=== PATIENT | male | born 1950 | race Caucasian/White ===

== ENCOUNTER 2021-02-08 12:00 | Observation (INO) | payer MEDICARE, OTHER ==
[2021-02-08] MEDS ORDERED: Sodium Chloride 0.9% 1000 ML 1,000 ML ONE ×2 (12:28→18:01)
[2021-02-08] MEDS ORDERED: Sodium Chloride 0.9% 1000 ML 1,000 ML IV STA (12:44)
[2021-02-08 12:53] LABS: Absolute Neutrophil Ct (ANC) 3.59 (1.4-6.9); BASOPHIL % 0.4 % (0.0-0.4); Basophil (Absolute #) 0.02 (0-0.4); Eosinophil % 2.1 % (0.00-5.0); Hematocrit 41.3 % (42-50); Lymphocyte (Absolute #) 0.57 (1.0-4.6); Lymphocytes % 12.2 % (24.0-44.0); Mean Cell Volume 97.2 fl (78-100); Mean Corpuscular Hemoglobin 32.9 pg (26-32); Mean Corpuscular Hgb Concent. 33.9 g/dl (32-36); Mean Platelet Volume 9.7 fl (7.5-11.0); Monocyte (Absolute #) 0.39 (0.0-1.3); Monocytes % 8.4 % (0.0-12.0); Neutrophil % 76.9 % (36.0-66.0); Platelet Count 135 K/mm3 (150-450); Red Blood Count 4.25 M/mm3 (4.1-5.6); Red Cell Distribution Width 13.2 % (11.5-14.0); White Blood Count 4.7 K/mm3 (4.0-10.5)
[2021-02-08 12:58] LABS: ALBUMIN 4.2 g/dL (3.5-5.0); ALKALINE PHOSPHATASE 68 U/L (38-126); ANION GAP 17.2 MEQ/L (5-15); BLOOD UREA NITROGEN 16 mg/dL (9-20); CHLORIDE 102 mmol/L (98-107); Calcium 9.3 mg/dL (8.4-10.2); Carbon Dioxide 21 mmol/L (22-30); Creatinine 1 1.01 mg/dL (0.66-1.25); EST GLOMERULAR FILTRATION RATE > 60.0 ML/MIN; Glucose 103 mg/dL (74-106); MAGNESIUM 1.9 mg/dL (1.6-2.3); Potassium 4.3 mmol/L (3.5-5.1); SGOT/AST 28 U/L (17-59); SGPT/ALT 18 U/L (0-50); SODIUM 136 mmol/L (137-145); Total Protein 6.8 g/dL (6.3-8.2)
--- NOTE | 2021-02-08 13:14 | ERPHSYRPT ---
- History of Present Illness Time Seen by Provider: 02/08/21 12:10 Source: patient, family Exam Limitations: no limitations Patient Subjective Stated Complaint: Pt was at a restraunt when he noticed having spots in front of his eyes and then when he stood up he got dizzy and almost passed out Triage Nursing Assessment: Pt brought to the ER by his , hypotensive, denies pain, pulses normal, sinus rhythm, diaphoretic, still has spots before eyes Physician History: 70 years old male with history of hypertension, visual issues with chronic seeing spots and field of vision presented in the ER after he got dizzy ligh theaded while walking into the restaurant with seeing more spots and was almost passed out when somebody got him. He did not completely lose consciousness. Patient report he started to feel weak all over without any chest pain palpitations or shortness of breath before or after the episode. He denies any focal numbness tingling or weakness. Patient reports he was mowing yard outside in hot yesterday and feels as if he was dehydrated. Patient feels back to normal right now and his blood pressure systolic is 83. Patient did take his routine antihypertensives earlier today. Denies any vomiting or diarrhea. Timing/Duration: today, resolved prior to arrival, improved Severity: moderate Modifying Factors: Improves With: rest Associated Symptoms: weakness, No nausea, No vomiting, No abdominal pain, No shortness of breath, No heartburn, No diaphoresis, No cough, No chills, No chest pain, No fever, No headaches, No loss of appetite, No malaise, No syncope, No seizure Allergies/Adverse Reactions: No Known Drug Allergies Allergy (Verified 02/08/21 12:20) Home Medications: Amlodipine Besylate 10 mg PO BID 02/08/21 [History] Cetirizine HCl 10 mg PO DAILY 02/08/21 [History] Hydroxychloroquine Sulfate 200 mg PO DAILY 02/08/21 [History] Lisinopril 20 mg [Zestril 20 MG] 20 mg PO BID 02/08/21 [History] Metoprolol Succinate 50 mg [Toprol Xl 50 MG] 50 mg PO BID 02/08/21 [History] Omeprazole 40 mg PO DAILY 02/08/21 [History] Tamsulosin HCl 0.4 mg PO DAILY 02/08/21 [History] Travel Risk - International Travel Have you traveled outside of the country in past 3 weeks: No - Coronavirus Screening Are you exhibiting any of the following symptoms?: No Close contact with a COVID-19 positive Pt in past 14-21 Days: No - Vaccine Status Have you recieved a 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 - Vaccination Dates Date of 2cond Vaccination (if applicable): 10/06/2020 - Review of Systems Constitutional: Fatigue, Weakness Eyes: No Symptoms Ears, Nose, & Throat: No Symptoms Respiratory: No Symptoms Cardiac: No Symptoms Abdominal/Gastrointestinal: No Symptoms Genitourinary Symptoms: No Symptoms Musculoskeletal: No Symptoms Skin: No Symptoms Neurological: Dizziness Psychological: No Symptoms Endocrine: No Symptoms Hematologic/Lymphatic: No Symptoms Immunological/Allergic: No Symptoms - Past Medical History Neurological History: No Pertinent History Cardiac History: Coronary Artery Disease, High Cholesterol, Hypertension Respiratory History: No Pertinent History Endocrine Medical History: No Pertinent History Musculoskeletal History: Degenerative Disk Disease, Rheumatoid Arthritis, Other Other Medical History: lupus - Past Surgical History Past Surgical History: Yes Cardiac: Cardiac Stent Gastrointestinal: Appendectomy Musculoskeletal: Joint Replacement Other Surgical History: quad tendon repairs. hydrocele - Social History Smoking Status: Never smoker Exposure to second hand smoke: No Drug Use: none Patient Lives Alone: No - Nursing Vital Signs Nursing Vital Signs: Initial Vital Signs Pulse Rate 60 02/08/21 12:08 Respiratory Rate 17 02/08/21 12:08 Blood Pressure 101/68 02/08/21 12:08 O2 Sat by Pulse Oximetry 97 02/08/21 12:08 Pain Scale Pain Intensity 0 - Physical Exam General Appearance: no apparent distress, alert Eye Exam: PERRL/EOMI, eyes nml inspection Ears, Nose, Throat Exam: normal ENT inspection, TMs normal, pharynx normal Neck Exam: normal inspection, supple, full range of motion Respiratory Exam: normal breath sounds, lungs clear Cardiovascular Exam: regular rate/rhythm, normal heart sounds Gastrointestinal/Abdomen Exam: soft, normal bowel sounds, tenderness Back Exam: normal inspection, normal range of motion, No CVA tenderness Extremity Exam: normal inspection, normal range of motion Neurologic Exam: alert, oriented x 3, cooperative, 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 Plantars bilateral downgoing.), No motor deficits, No sensory deficit Skin Exam: normal color SpO2 Interpretation: normal SpO2: 96 O2 Delivery: Room Air - Course EKG Interpreted by Me: RATE (60), Sinus Rhythm, NORMAL AXIS, NORMAL INTERVALS, NORMAL QRS Ordered Tests: Active Orders 24 hr Category Date Time Status EKG-ER Only STAT Care 02/08/21 12:44 Active IV Insertion STAT Care 02/08/21 12:44 Active Orthostatic Vital Signs STAT Care 02/08/21 12:45 Active CHEST 1 VIEW (PORTABLE) Stat Exams 02/08/21 12:45 Taken CBC W DIFF Stat Lab 02/08/21 12:44 Completed CMP Stat Lab 02/08/21 12:44 Completed Lactic Acid Stat Lab 02/08/21 13:02 Completed MAGNESIUM Stat Lab 02/08/21 12:44 Completed TROPONIN Q3H Lab 02/08/21 12:45 Completed TROPONIN Q3H Lab 02/08/21 15:45 Ordered TROPONIN Q3H Lab 02/08/21 18:45 Ordered TROPONIN Q3H Lab 02/08/21 21:45 Ordered TROPONIN Q3H Lab 02/09/21 00:45 Ordered UA W/RFX UR CULTURE Stat Lab 02/08/21 12:45 Ordered Medication Summary Discontinued Medications Generic Name Dose Route Start Last Admin Trade Name Yudelka PRN Reason Stop Dose Admin Sodium Chloride Confirm 02/08/21 12:28 Sodium Chloride 0.9% 1000 Ml Administered 02/08/21 12:29 Dose 1,000 mls @ ud .ROUTE .STK-MED ONE Sodium Chloride 1,000 mls @ 999 mls/hr 02/08/21 12:44 02/08/21 12:59 Sodium Chloride 0.9% 1000 Ml IV 02/08/21 13:44 999 mls/hr .Q1H1M STA Administration Lab/Rad Data: Laboratory Result Diagrams 02/08/21 12:44 02/08/21 12:44 Laboratory Results 02/08/21 02/08/21 02/08/21 Range/Units 13:02 12:45 12:44 WBC (4.0-10.5) K/mm3 RBC (4.1-5.6) M/mm3 Hgb (12.5-18.0) gm/dl Hct (42-50) % MCV (78-100) fl MCH (26-32) pg MCHC (32-36) g/dl RDW (11.5-14.0) % Plt Count (150-450) K/mm3 MPV (7.5-11.0) fl Gran % (36.0-66.0) % Eos # (Auto) (0-0.5) Absolute Lymphs (auto) (1.0-4.6) Absolute Monos (auto) (0.0-1.3) Lymphocytes % (24.0-44.0) % Monocytes % (0.0-12.0) % Eosinophils % (0.00-5.0) % Basophils % (0.0-0.4) % Absolute Granulocytes (1.4-6.9) Basophils # (0-0.4) Sodium 136 L (137-145) mmol/L Potassium 4.3 (3.5-5.1) mmol/L Chloride 102 (98-107) mmol/L Carbon Dioxide 21 L (22-30) mmol/L Anion Gap 17.2 H (5-15) MEQ/L BUN 16 (9-20) mg/dL Creatinine 1.01 (0.66-1.25) mg/dL Estimated GFR > 60.0 ML/MIN Glucose 103 (74-106) mg/dL Lactic Acid 1.3 (0.4-2.0) Calcium 9.3 (8.4-10.2) mg/dL Magnesium 1.9 (1.6-2.3) mg/dL Total Bilirubin 0.60 (0.2-1.3) mg/dL AST 28 (17-59) U/L ALT 18 (0-50) U/L Alkaline Phosphatase 68 (38-126) U/L Troponin I < 0.012 (0.000-0.034) ng/mL Serum Total Protein 6.8 (6.3-8.2) g/dL Albumin 4.2 (3.5-5.0) g/dL Slides for Path Review 02/08/21 Range/Units 12:44 WBC 4.7 (4.0-10.5) K/mm3 RBC 4.25 (4.1-5.6) M/mm3 Hgb 14.0 (12.5-18.0) gm/dl Hct 41.3 L (42-50) % MCV 97.2 (78-100) fl MCH 32.9 H (26-32) pg MCHC 33.9 (32-36) g/dl RDW 13.2 (11.5-14.0) % Plt Count 135 L (150-450) K/mm3 MPV 9.7 (7.5-11.0) fl Gran % 76.9 H (36.0-66.0) % Eos # (Auto) 0.10 (0-0.5) Absolute Lymphs (auto) 0.57 L (1.0-4.6) Absolute Monos (auto) 0.39 (0.0-1.3) Lymphocytes % 12.2 L (24.0-44.0) % Monocytes % 8.4 (0.0-12.0) % Eosinophils % 2.1 (0.00-5.0) % Basophils % 0.4 (0.0-0.4) % Absolute Granulocytes 3.59 (1.4-6.9) Basophils # 0.02 (0-0.4) Sodium (137-145) mmol/L Potassium (3.5-5.1) mmol/L Chloride (98-107) mmol/L Carbon Dioxide (22-30) mmol/L Anion Gap (5-15) MEQ/L BUN (9-20) mg/dL Creatinine (0.66-1.25) mg/dL Estimated GFR ML/MIN Glucose (74-106) mg/dL Lactic Acid (0.4-2.0) Calcium (8.4-10.2) mg/dL Magnesium (1.6-2.3) mg/dL Total Bilirubin (0.2-1.3) mg/dL AST (17-59) U/L ALT (0-50) U/L Alkaline Phosphatase (38-126) U/L Troponin I (0.000-0.034) ng/mL Serum Total Protein (6.3-8.2) g/dL Albumin (3.5-5.0) g/dL Slides for Path Review YES - Progress Progress: improved, re-examined Progress Note: 02/08/21 14:49 70 years old is evaluated for feeling dizzy lightheaded with generalized weakness fatigue. Patient was hypotensive on presentation. Given fluid bolus and feeling much better. He has a nonfocal neuro exam. He has spots in his visual field which are chronic. Patient does follow-up with ophthalmology for that. Chest x-ray did not show any focal consolidation. EKG normal sinus rh ythm with no acute ST elevation and negative initial troponin. Chemistry profile showed mildly low bicarb and gap of 17. I believe patient has some dehydration. Lactate is normal. I believe he would benefit with fluids. Discussed with Dr. Smith and patient is accepted for admission. Discussed with .: Leon Will see patient in: hospital (observation) Counseled pt/family regarding: lab results, diagnosis, rad results - Departure Departure Disposition: Observation Clinical Impression: Dehydration, Orthostatic lightheadedness Hypotension Qualifiers: Hypotension type: other hypotension type Qualified Code(s): I95.89 - Other hypotension Condition: Stable Critical Care Time: No Referrals: CHIVO CHAVEZ MD [Primary Care Provider] -
[2021-02-08 14:44] LABS: Slide Review 1 YES
[2021-02-08 16:22] LABS: Appearance SLIGHTLY CLOUDY (CLEAR); Bilirubin NEGATIVE (NEGATIVE); Blood NEGATIVE Ery/ul (0-5); Glucose NEGATIVE (NEGATIVE); Ketones SMALL (NEGATIVE); Leukocyte Esterase NEGATIVE (NEGATIVE); Mucus SLIGHT /HPF (NEGATIVE); Nitrite NEGATIVE (NEGATIVE); Protein,Urine Dip NEGATIVE (Negative); Specific Gravity 1.012 (1.005-1.025); Urobilinogen NEGATIVE mg/dL (0-1)
[2021-02-08] MEDS ORDERED: Sodium Chloride 0.9% W/ 20 mEq KCl/LITER 1,000 ML IV SCH (18:04)
[2021-02-08] MEDS ORDERED: DUONEB 0.5-3 MG/3 ml Neb IH PRN (18:04)
[2021-02-08] MEDS ORDERED: Zofran 4 MG/2 ML VIAL IV PRN (18:04)
[2021-02-08] MEDS ORDERED: TYLENOL 325 MG PO PRN (18:04)
[2021-02-08] MEDS: Sodium Chloride 0.9% 1000 ML 1,000 ML IV SCH (18:43)
[2021-02-08] MEDS ORDERED: PROTONIX 40 MG IV IV ONE (20:00)
--- NOTE | 2021-02-08 21:28 | XRAY ---
Indication: Dizziness. Comparison: None Portable chest demonstrates subtle asymmetric right base infiltrate versus atelectasis. Remaining heart and lungs unremarkable with incidental tortuous descending aorta. Bony thorax intact.
[2021-02-08] MEDS ORDERED: Toprol Xl 50 MG PO SCH (22:00)
[2021-02-08] MEDS ORDERED: Flomax 0.4 MG PO SCH (22:00)
[2021-02-09 01:36] LABS: ALBUMIN 3.2 g/dL (3.5-5.0); ALKALINE PHOSPHATASE 58 U/L (38-126); ANION GAP 12.4 MEQ/L (5-15); BLOOD UREA NITROGEN 14 mg/dL (9-20); CHLORIDE 105 mmol/L (98-107); Calcium 8.4 mg/dL (8.4-10.2); Carbon Dioxide 24 mmol/L (22-30); Creatinine 1 0.71 mg/dL (0.66-1.25); EST GLOMERULAR FILTRATION RATE > 60.0 ML/MIN; Glucose 93 mg/dL (74-106); Potassium 4.2 mmol/L (3.5-5.1); SGOT/AST 22 U/L (17-59); SGPT/ALT 15 U/L (0-50); SODIUM 138 mmol/L (137-145); Total Protein 5.5 g/dL (6.3-8.2)
[2021-02-09] MEDS: Sodium Chloride 0.9% 1000 ML 1,000 ML IV SCH (01:55)
[2021-02-09 03:09] LABS: Absolute Neutrophil Ct (ANC) 1.53 (1.4-6.9); BASOPHIL % 0.6 % (0.0-0.4); Basophil (Absolute #) 0.02 (0-0.4); Eosinophil % 5.2 % (0.00-5.0); Eosinophil (Absolute #) 0.17 (0-0.5); Hematocrit 36.3 % (42-50); Lymphocyte (Absolute #) 1.02 (1.0-4.6); Lymphocytes % 31.5 % (24.0-44.0); Mean Cell Volume 99.5 fl (78-100); Mean Corpuscular Hemoglobin 32.9 pg (26-32); Mean Corpuscular Hgb Concent. 33.1 g/dl (32-36); Mean Platelet Volume 9.8 fl (7.5-11.0); Monocytes % 15.4 % (0.0-12.0); Neutrophil % 47.3 % (36.0-66.0); Platelet Count 103 K/mm3 (150-450); Red Blood Count 3.65 M/mm3 (4.1-5.6); Red Cell Distribution Width 13.1 % (11.5-14.0); White Blood Count 3.2 K/mm3 (4.0-10.5)
[2021-02-09 04:06] VITALS: O2SAT 94
[2021-02-09 07:45] VITALS: BP 127/63; PULSE 80
[2021-02-09] MEDS ORDERED: MEDICATION INTERVENTION PO SCH ×2 (09:15)
[2021-02-09] MEDS ORDERED: HYDROXYCHLOROQUINE SULFATE 400 MG PO SCH (10:00)
[2021-02-09] MEDS ORDERED: CLARITIN 10 MG PO SCH (10:00)
[2021-02-09] MEDS ORDERED: NON-FORMULARY ITEM (Cetirizine Hcl [Cetirizine Hcl] 10 MG) PO SCH (10:00)
[2021-02-09] MEDS ORDERED: PROTONIX 40 MG IV IV SCH (10:00)
[2021-02-09] MEDS ORDERED: NON-FORMULARY ITEM (Hydroxychloroquine Sulfate [Hydroxychloroquine Sulfate] 200 MG) PO SCH (22:00)
--- NOTE | 2021-02-11 12:09 | SSS ---
DISCHARGE DIAGNOSES: 1) DEHYDRATION. 2) HYPOTENSION. 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 He reports later on when he got up he became dizzy and almost passed out. He was brought to the emergency room by his . He was found to be somewhat hypotensive and he was given IV fluids which did improve his situation. He was felt the need to have observation overnight. PAST MEDICAL/SURGICAL HISTORY: The patient's medical history is significant for hypertension, benign prostatic hypertrophy. He has history of coronary artery disease, high cholesterol and hypertension. He reports he had a previous stent placed 20 years ago and has been fine since that time. HOME MEDICATIONS: Amlodipine 10 mg b.i.d., cetirizine 10 mg a day, hydroxychloroquine 200 mg at night, lisinopril 20 mg b.i.d., metoprolol 50 mg b.i.d., omeprazole 40 mg daily, tamsulosin 0.4 mg. ALLERGIES: NKDA. PHYSICAL EXAMINATION: The patient's vital signs on admission showed pulse to be 60, respiratory rate 17, blood pressure 101/68. O2 saturation is 97%. HEENT: Normocephalic, atraumatic. Pupils equal round reactive to light. Extraocular movements intact. Oropharynx is pink and moist. NECK: Supple without lymphadenopathy, thyromegaly or JVD. CHEST: Clear to auscultation. HEART: Regular rate and rhythm without murmurs, rubs or gallops. ABDOMEN: Soft. No palpable masses. EXTREMITIES: Without cyanosis, clubbing or edema. NEUROLOGIC: The patient is alert and oriented x3. LAB DATA AND TESTS: Troponin less than 0.012. His metabolic panel showed glucose 93, BUN 14, creatinine 0.71. His electrolytes are normal. Liver enzymes were normal. Protein was slightly low at 5.5. His white count is 3,200, hemoglobin 12.0 and PLT count 103,000 after fluid hydration. The patient previous to that showed a glucose of 135, BUN 16, creatinine 1.01, sodium 136. His potassium normal at 4.3. Liver enzymes were normal as well. Lactic acid 1.3. His white count was 4.7 and hemoglobin 14.0, PLT count 135,000. His chest x-ray was essentially normal. His EKG showed sinus rhythm during his stay in the hospital. His axis was normal and 12 lead EKG was essentially normal tracing. HOSPITAL COURSE: The patient was given IV fluids and by the next morning he was feeling much better. We checked his orthostatic vital signs and did not show any orthostatic change and he was felt to be ready for discharge home again at this point to follow up with his regular doctor within the next week. He is to continue pushing fluids as earlier stated he had gotten overheated the day before and realized that he just was not keeping up with his fluids.
== END 2021-02-09 09:22 | disposition home or self-care (01) ==
LOC: ED 12:00 → MED SURG 17:48
PROVIDERS: ADMIT Family Medicine; ATTEND Family Medicine
DX: E86.0 Dehydration (principal); I95.9 Hypotension, unspecified; Z20.828 Contact with and (suspected) exposure to other viral communicable diseases; Z79.899 Other long term (current) drug therapy; I10 Essential (primary) hypertension; Z86.79 Personal history of other diseases of the circulatory system
CPT/HCPCS: 36000; 36415; 71045; 80053; 81001; 83605; 83735; 84484; 85025; 93005; 93041; 94760; 96360; 99285; U0003; 93268; A9270-GY; G0378